=== PATIENT | female | born 1985 | race Caucasian/White ===

== ENCOUNTER 2022-11-06 19:31 | Emergency (ER) | payer OTHER ==
[~2022-11-06] VITALS: Ht 157.5 cm; Wt 100.0 kg
[2022-11-06] MEDS ORDERED: albuterol 2.5 MG/3 ML nebule CONTNEB STA (19:38)
[2022-11-06] MEDS ORDERED: ipratropium 0.5 MG/2.5ML nebule IH ONE (20:20)
[2022-11-06] MEDS ORDERED: budesonide 0.5mg/2ml UD nebule IH ONE (20:20)
[2022-11-06] MEDS ORDERED: predniSONE 20 mg tablet PO ONE (20:20)
[2022-11-06] MEDS ORDERED: ipratropium/albuterol 3ml nebule NEB STA (21:48)
[2022-11-06] MEDS ORDERED: albuterol 2.5 MG/3 ML nebule CONTNEB ONE (22:30)
[2022-11-06] MEDS ORDERED: PRED20TA PO (23:32)
[2022-11-07 00:50] VITALS: BP 122/70
== END 2022-11-07 00:51 | disposition home or self-care (01) ==
LOC: ER 19:31
DX: J44.1 Chronic obstructive pulmonary disease with (acute) exacerbation (principal); Z79.899 Other long term (current) drug therapy
CPT/HCPCS: 94640; 94644; 94645; 99285; J7512; 94760; A7015